=== PATIENT | female | born 1995 | race Caucasian/White ===

== ENCOUNTER 2024-08-21 09:59 | Outpatient (CLI) | payer SELFPAY ==
[2024-08-21 10:20] VITALS: RESP 16; TEMP 36.7; BMI 28.0
[2024-08-21 10:36] LABS: Bacteria Urine 1+ /hpf; Hyaline Casts Urine 2.87 /lpf; RBC Urine 0-2 /hpf (0-2); WBC Urine 21-50 /hpf (0-5)
[2024-08-21 10:38] LABS: Add Urine Culture? Yes; Bilirubin Urine Neg (Negative); Blood Urine Neg (Negative); Glucose Urine UA Norm (Normal); Ketones Urine Negative (Negative); Leukocyte Esterase Urine 2+ (Negative); Nitrate Urine Negative (Negative); Protein Urine Neg (Negative); Urine Appearance Slightly Cloudy (CLEAR); Urine Color Yellow (Yellow); Urobilinogen Urine Norm (Negative); pH Urine 5 (5-7)
[2024-08-21 10:59] VITALS: RESP 16; TEMP 36.8
== END 2024-08-21 11:01 | disposition home or self-care (01) ==
LOC: OPOB 09:59 → OBGYN 10:00
PROVIDERS: Visit Provider Family Medicine
DX: O26.859 Spotting complicating pregnancy, unspecified trimester (principal); Z3A.00 Weeks of gestation of pregnancy not specified; R10.9 Unspecified abdominal pain
CPT/HCPCS: 81001; 87086; 99211

== ENCOUNTER 2024-12-26 18:24 | Inpatient (IN) | payer OTHER, SELFPAY ==
[2024-12-26] VITALS (18 sets, daily range): BP systolic 110–135; BP diastolic 57–76; PULSE 73–102; TEMP 36.9; BMI 34.0
[2024-12-26 19:01] LABS: Hematocrit 32.3 % (36-47); Hemoglobin 10.30 g/dL (11.27-16.99); Mean Corpuscular HGB Conc 31.9 g/dL (30-55); Mean Corpuscular Hemoglobin 26.8 pg (27-33); Mean Corpuscular Volume 84.1 fl (85-98); Nucleated Red Blood Cells % 0.1 %; Platelet Count 322 10^3/cmm (157-399); Red Blood Count 3.84 10^6/uL (3.85-5.65); White Blood Count 15.13 10^3/uL (3.29-11.43)
[2024-12-27] VITALS (49 sets, daily range): BP systolic 105–132; BP diastolic 53–83; PULSE 56–93; RESP 15–16; TEMP 36.6–36.7; O2SAT 86–100
--- NOTE | 2024-12-27 06:13 | PM.OPHPUD ---
Labor & Delivery H&P Update Date of Procedure: December 27, 2024 Date H&P Performed: 12/20/24 Changes to previous documentation: The patient presented in active labor with cervical change. Admission Diagnosis: 29-year-old 2 para 1-0-0-1 Planned procedure: Spontaneous vaginal delivery Other information: The patient is a pleasant 39-week female who presented to the hospital having intermittent painful contractions. The patient was very concerned that she lived almost an hour away from the hospital and was concerned that she would go too quickly. The discussion was had regarding the benefits of waiting for spontaneous labor. After that discussion, the patient elected to proceed with augmentation of her labor. The patient's was otherwise unremarkable. She had consistent care. Her blood type was a positive. She was antibody negative. She was GBS negative. She passed her glucose screen. She is rubella immune. The remainder of her infectious disease profile was within normal limits. Related Problem List Diagnoses 1. 39 weeks gestation of : A&P Assessment and plan 1. 39 weeks gestation of : I anticipate routine labor and vaginal delivery. Status: Acute PDMP PDMP Reviewed: Not Reviewed
[2024-12-27] MEDS: ROPivacaine syringe 100 MG/50 ML SYRINGE 10 MG EPIDURAL ×2 (07:38→09:32)
--- NOTE | 2024-12-27 08:25 | ANES.PREANE2 ---
Pre-Anesthetic Assessment Height/Weight: Height 1.68 m Weight 95.481 kg Temp Pulse BP Pulse Ox O2 Del Method 98.4 F 87 128/70 100 Room Air 12/26/24 19:26 12/27/24 08:20 12/27/24 08:20 12/27/24 08:20 12/26/24 19:15 Preop Diagnosis: IUP epidural Familial anesthetic complications: none Social No alcohol and No tobacco Exam alert, oriented x 3, clear to auscultation bilaterally and regular rate & rhythm Airway Dentition: full Anesthetic Plan ASA status: 2 Anesthesia: Regional (specify below) Risk of > 500 ml blood loss (7ml/kg in children): Yes, adequate IV access and fluids planned Medications/Allergies Home Medications ?Medication ?Instructions ?Recorded ?Confirmed ?Last Taken ?Type hvfwvqfl-qnw-[id number]-FA 1 mg 1 tab PO DAILY 12/26/24 12/26/24 12/26/24 08:00 History tablet Allergies Allergy/AdvReac Type Severity Reaction Status Date / Time No Known Allergies Allergy Verified 12/26/24 19:01 Current Medications Generic Name Dose Route Start Last Admin Trade Name Freq PRN Reason Stop Dose Admin Dextrose/Lactated Ringer's 1,000 mls @ 125 mls/hr 12/26/24 18:45 12/27/24 07:39 Dextrose 5%-Lactated Ringers IV 125 mls/hr .Q8H MILAGROS Administration Ropivacaine 100 mg in 50 mls @ 10 mls/hr 12/27/24 06:15 12/27/24 07:38 Naropin Syringe EPIDURAL 10 mls/hr .Q5H MILAGROS Administration Sodium Chloride 1,000 mls @ 999 mls/hr 12/27/24 06:14 12/27/24 06:28 Sodium Chloride 0.9% IV 999 mls/hr .Q1H1M PRN Administration See label comments PFSH Anesthesia Female Reproductive History : 2 Data Anesthesia 12/26/24 18:35 Short CBC 12/26/24 Range/Units 18:35 WBC 15.13 H (3.29-11.43) 10^3/uL Hgb 10.30 L (11.27-16.99) g/dL Hct 32.3 L (36-47) % MCV 84.1 L (85-98) fl Plt Count 322 (157-399) 10^3/cmm Neut % (Auto) 75.5 % Neut # (Auto) 11.43 H (1.8-7.7) 10^3/uL Blood Bank 12/26/24 18:35 Blood Type A Positive Rho(D) Type Rh positive Antibody Screen Negative Anesthesia Procedures Epidural Time Out Performed: Yes Consents Signed: Procedure Consent Consent: requested by attending/covering physician, from patient, risks and benefits reviewed and patient agrees to proceed Lumbar Level: L3-L4 Epidural position: sitting Epidural procedure: sterile prep of area, 1% lidocaine to numb the area, 18 g needle, negative for paresthesia passed, neg for paresthesia, test dose given, 1.5% xylocaine 1:200k epi (5), 0.2% Ropivacaine bolus ml (5), placed PCEA, no systemic response, sterile dressing applied, L.U.D. no apparent complications and 0.2% Ropiavacaine @ mls/hr (10) Additional Comments: GUILLERMO at 5 cm, threaded to 11 cm
[2024-12-27] MEDS: ondansetron 2 mg/ML SDV 2 mL 4 MG IVP (09:04)
--- NOTE | 2024-12-27 10:56 | P.PCNOB_ITS ---
Delivery Note: Date of delivery: December 27, 2024 Pre-delivery diagnoses: 1. 29-year-old 2 para 1-0-0-1 a t 39 weeks estimated gestational age Post-delivery diagnoses: Status post spontaneous vaginal delivery Procedure: Spontaneous vaginal delivery Delivering Physician: Marcelo Cruz Estimated blood loss (mL): 50 Pre-Delivery Course: The patient presented to the hospital the night prior to delivery. She was having contractions every 10 to 15 minutes. Because of the distance of the patient from the hospital we had a discussion about options including augmenting her labor. The patient chose to augment her labor. Cytotec 25 mcg x 2 followed by an amniotomy this morning were used. An epidural was placed. She then progressed to complete without difficulty. Delivery: DELIVERY: The patient progressed to complete without difficulty. She delivered a female with a weight of 7 pounds 11 ounces with Apgars of 8, 10. The baby was delivered from the RACHEL position and placed on the mother's abdomen. The cord was then clamped and cut approximately 1 minute after delivery. There was no nuchal cord. There was no meconium. The placenta and 3 vessel cord were delivered intact shortly thereafter. The perineum and vaginal vault were carefully examined. Several superficial vaginal wall lacerations were noted. None were bleeding. None required repair.. Both the mother and the baby were in stable condition. Post-Delivery Status: Good A&P Assessment and plan 1. 39 weeks gestation of : I anticipate routine care 2. Spontaneous vaginal delivery: PDMP PDMP Reviewed: Not Reviewed Coding Level of Care Code Acute Code for Chg Fwd Diagnoses 39 weeks gestation of Z3A.39 Spontaneous vaginal delivery O80
[2024-12-27 23:19] LABS: Hematocrit 28.4 % (36-47); Hemoglobin 9.10 g/dL (11.27-16.99); Mean Corpuscular HGB Conc 32.0 g/dL (30-55); Mean Corpuscular Hemoglobin 26.3 pg (27-33); Mean Corpuscular Volume 82.1 fl (85-98); Platelet Count 247 10^3/cmm (157-399); Red Blood Count 3.46 10^6/uL (3.85-5.65); White Blood Count 15.45 10^3/uL (3.29-11.43)
[2024-12-28 03:34] VITALS: BP 111/72; PULSE 71; RESP 17; O2SAT 97
--- NOTE | 2024-12-28 07:00 | P.DS_ITS ---
Discharge Providers LAY OUT AND DETAIL DRAFTER Date of Admission: 12/26/24 18:24 Date of Discharge: 01/15/25 Attending Provider at Admission: Marcelo Cruz MD Attending Provider at Discharge: Marcelo Cruz MD Primary Care Provider: Marcelo Cruz MD Diagnoses at Discharge Discharge Diagnosis 1. 39 weeks gestation of : Reason for Visit Reason for Visit: ctx Hospital Course Hospital Course The patient presented to the hospital having contractions. Her labor was augmented with Cytotec.And amniotomy was performed.She had an unremarkable vaginal delivery. Her course was unremarkable. Her bleeding was within normal limits.Her pain was well-controlled. There were no concerns. Information Peripartum Data: Infant Delivery Method: Vaginal Physical Exam Narrative: The patient is alert. She appears comfortable. Her heart has a regular rate and rhythm with no murmurs appreciated. Lungs are clear to auscultation bilaterally. Her fundus is firm and below the umbilicus. Urinary Catheter Management: Arreguin: Cath Placed During This Visit: yes, but has since been removed by the nurse Reason for Continuing Indwelling Catheter: Decision to DC Catheter Urinary Catheter Date of Insertion: 12/27/24 Urinary Catheter Time of Insertion: 08:15 Date Urinary Catheter Removed: 12/27/24 Time Urinary Catheter Discontinued: 10:30 Discharge Data Studies Completed and Pending Laboratory Results WBC 15.45 10^3/uL (3.29-11.43) H 12/27/24 23:00 RBC 3.46 10^6/uL (3.85-5.65) L 12/27/24 23:00 Hgb 9.10 g/dL (11.27-16.99) L 12/27/24 23:00 Hct 28.4 % (36-47) L 12/27/24 23:00 MCV 82.1 fl (85-98) L 12/27/24 23:00 MCH 26.3 pg (27-33) L 12/27/24 23:00 MCHC 32.0 g/dL (30-55) 12/27/24 23:00 RDW 14.2 % (12.1-15.1) 12/27/24 23:00 Plt Count 247 10^3/cmm (157-399) 12/27/24 23:00 MPV 9.6 fL (7.4-10.4) 12/27/24 23:00 Neut % (Auto) 75.5 % 12/26/24 18:35 Lymph % (Auto) 13.3 % 12/26/24 18:35 Emery % (Auto) 7.7 % 12/26/24 18:35 Eos % (Auto) 0.6 % 12/26/24 18:35 Baso % (Auto) 0.3 % 12/26/24 18:35 Neut # (Auto) 11.43 10^3/uL (1.8-7.7) H 12/26/24 18:35 Lymph # (Auto) 2.0 10^3/uL (0.8-4.8) 12/26/24 18:35 Emery # (Auto) 1.2 10^3/uL (0.2-0.9) H 12/26/24 18:35 Eos # (Auto) 0.1 10^3/uL (0.0-0.8) 12/26/24 18:35 Baso # (Auto) 0.0 10^3/uL (0.0-0.1) 12/26/24 18:35 Nucleated RBC % (auto) 0.1 % 12/26/24 18:35 Nucleated RBCs # 0.0 /100WBC 12/26/24 18:35 Blood Type A Positive 12/26/24 18:35 Rho(D) Type Rh positive 12/26/24 18:35 Antibody Screen Negative 12/26/24 18:35 Vitals Last Vital Signs Temp 98.1 F 12/27/24 23:25 Pulse 71 12/28/24 03:34 Resp 17 12/28/24 03:34 BP 111/72 12/28/24 03:34 Pulse Ox 97 12/28/24 03:34 O2 Del Method Room Air 12/28/24 03:34 Results Labs OB ([facility]): Blood Type A Positive 12/26/24 Antibody Screen Negative 12/26/24 Hct, (36-47) 28.4 % L 12/27/24 Hgb, (11.27-16.99) 9.10 g/dL L 12/27/24 Rho(D) Type Rh positive 12/26/24 Plt Count, (157-399) 247 10^3/cmm 08/06/25 Micro Urine Specimen 08/21/24 Discharge Plan Discharge Patient Disposition: Home Condition: Stable Prescriptions: New ibuprofen 800 mg Tablet 800 mg PO TID Qty: 45 0RF Continued qcfwvvot-[id number]-Hg-FA 1 mg Tablet 1 tab PO DAILY Discharge Order = DC NOW: Discharge Order (Routine); Ordered 12/28/24 Ordered By: Marcelo Cruz Referrals: Marcelo Cruz MD [Primary Care Provider, [facility]] - 02/08/25 10:20 am Referral Note: Your 6 week appointment is on 02/08/2025 at 10:20am Discharge Diet: Usual diet Discharge Activity: Limit activity as instructed Patient Instructions: Depression (DC), Opioid Safety (DC), Preeclampsia and Eclampsia After Delivery (GEN), Hemorrhage (DC), OB Discharge Report, OB Food/Drug Interaction Guide, OB Care at Home, Opioid Safety, OB Vaginal Deliveries, Patient Portal & Brandon Instructions, Abnormal Bleeding Discharge Attestations LAY OUT AND DETAIL DRAFTER Time Spent in Discharge Care*: less than 30 min Coding Level of Care Code Acute Code for Chg Fwd Diagnoses 39 weeks gestation of Z3A.39
[2024-12-28] MEDS: PRENATAL VIT NO.130/IRON/FOLIC 1 EACH TABLET PO (09:14)
[2024-12-28 10:00] VITALS: BP 107/71; PULSE 68; RESP 17
--- NOTE | 2024-12-28 14:20 | ANE.PACU2 ---
Inpatient post-anesthesia follow up: Airway intact: Yes Vital signs: Temperature 97.9 F Pulse Rate 77 Respiratory Rate 15 Blood Pressure 124/84 Pulse Oximetry 99 Oxygen Delivery Me thod Room Air Oxygen Flow Rate Fraction of Inspir ed Oxygen Hydration adequate: Yes Nausea and vomiting: No Pain level: 1 Mental status: Baseline Epidural Start/End: Epidural Start Date: 12/27/24 Epidural Start Time: 07:28 Epidural End Date: 12/28/24 Epidural End Time: 13:19
[2024-12-28 15:44] VITALS: BP 124/84; PULSE 77; RESP 15; TEMP 36.6; O2SAT 99
== END 2024-12-28 15:55 | disposition home or self-care (01) | DRG 807 ==
LOC: OPOB 18:24 → OBGYN 18:24
PROVIDERS: Admitting Provider Family Medicine; PCP Family Medicine; Visit Provider Family Medicine
DX: O80 Encounter for full-term uncomplicated delivery (principal); Z37.0 Single live birth; Z3A.39 39 weeks gestation of pregnancy
CPT/HCPCS: 36415; 51702; 59025; 59409; 85025; 85027; 86850; 86900; 99211; J2405; J2795; J7030; J7121; J9999